=== PATIENT | male | born 1985 | race Native Hawaiian/Other Pacific Islander ===

== ENCOUNTER 2018-01-06 21:01 | Emergency (ER) | payer BC ==
[~2018-01-06] VITALS: Ht 180.3 cm; Wt 96.2 kg
[2018-01-06 21:05] VITALS: TEMP 98.1
[2018-01-06 21:21] LABS: PLATELET COUNT 234 K/uL (142-355)
[2018-01-06 21:39] LABS: POTASSIUM 3.8 mmol/L (3.6-5.2)
[2018-01-06 22:45] VITALS: BP 138/92
== END 2018-01-06 22:45 | disposition home or self-care (01) ==
LOC: ED 21:01
DX: R10.9 Unspecified abdominal pain (principal); K59.00 Constipation, unspecified; J32.9 Chronic sinusitis, unspecified
CPT/HCPCS: 36415; 80053; 85027; 87081; 87804; 87880; 99283

== ENCOUNTER 2018-04-03 15:19 | Emergency (ER) | payer BC ==
[~2018-04-03] VITALS: Ht 180.3 cm; Wt 97.5 kg
[2018-04-03 15:15] VITALS: BP 149/89; TEMP 98.4
== END 2018-04-03 17:50 | disposition home or self-care (01) ==
LOC: ED 15:19
DX: K04.7 Periapical abscess without sinus (principal); R68.84 Jaw pain
CPT/HCPCS: 96372; 99283; J1885

== ENCOUNTER 2018-07-05 09:02 | Emergency (ER) | payer BC ==
[~2018-07-05] VITALS: Ht 180.3 cm; Wt 97.5 kg
[2018-07-05 09:05] VITALS: TEMP 97.9
[2018-07-05 09:33] LABS: PLATELET COUNT 238 K/uL (142-355)
[2018-07-05 09:44] LABS: SODIUM 142 mmol/L (136-145)
[2018-07-05 13:35] VITALS: BP 136/98
== END 2018-07-05 13:35 | disposition home or self-care (01) ==
LOC: ED 09:02
DX: I10 Essential (primary) hypertension (principal)
CPT/HCPCS: 80053; 81000; 82550; 82553; 84484; 85027; 93005; 99283

== ENCOUNTER 2018-10-17 16:53 | Emergency (ER) | payer BC ==
[~2018-10-17] VITALS: Ht 180.3 cm; Wt 97.5 kg
[2018-10-17 17:01] VITALS: BP 123/87; TEMP 97.7
== END 2018-10-17 17:20 | disposition home or self-care (01) ==
LOC: ED 16:53
DX: K08.89 Other specified disorders of teeth and supporting structures (principal); K02.9 Dental caries, unspecified
CPT/HCPCS: 99282

== ENCOUNTER 2018-12-22 15:36 | Emergency (ER) | payer BC ==
[~2018-12-22] VITALS: Ht 180.3 cm; Wt 99.8 kg
[2018-12-22 16:00] VITALS: TEMP 98.1
[2018-12-22 17:10] VITALS: BP 130/97
== END 2018-12-22 17:10 | disposition home or self-care (01) ==
LOC: ED 15:36
DX: K04.7 Periapical abscess without sinus (principal); K08.89 Other specified disorders of teeth and supporting structures
CPT/HCPCS: 96372; 99283; J1885

== ENCOUNTER 2019-01-31 17:53 | Emergency (ER) | payer BC ==
[~2019-01-31] VITALS: Ht 180.3 cm; Wt 99.8 kg
[2019-01-31 18:00] VITALS: BP 117/80; TEMP 97.7
[2019-01-31 18:56] LABS: PLATELET COUNT 240 K/uL (142-355)
[2019-01-31 19:04] LABS: POTASSIUM 4.2 mmol/L (3.6-5.2)
== END 2019-01-31 19:36 | disposition home or self-care (01) ==
LOC: ED 17:53
PROVIDERS: Family Medicine
DX: R10.11 Right upper quadrant pain (principal)
CPT/HCPCS: 80053; 81000; 82150; 83690; 85027; 99283